=== PATIENT | male | born 1990 | race Caucasian/White ===

== ENCOUNTER 2018-11-12 16:46 | Emergency (ER) | payer MEDICAID ==
[2018-11-12] MEDS ORDERED: cefTRIAXone 1 GM in Sodium Chloride 0.9% 50 ML IV ONE (17:25)
--- NOTE | 2018-11-12 18:12 | ED Physician Chart ---
ED Chief Complaint/HPI - Patient Information Date Seen:: 11/12/18 Time Seen:: 17:00 Chief Complaint:: Fever History of Present Illness:: onset x 2 days of fever, H/As, S/T, neck pain, and myalgias; pt denies LOC, ALOC , AMS, trauma, cough, C/P, dyspnea, abd. pain, A/N/V/D/C< chills, or urinary s/s Allergies:: Allergies Allergy/AdvReac Type Severity Reaction Status Date / Time No Known Allergies Allergy Verified 11/12/18 17:21 Vitals:: Vital Signs - 8 hr 11/12/18 17:09 Temp 100.1 F HR 112 RR 18 BP 110/81 O2 Sat % 98 Historian:: Patient, Family Member Review:: Nurse's Note Reviewed, Old Chart Reviewed <Azar Moscoso - Last Filed: 11/12/18 18:07> - Patient Information Allergies:: Allergies Allergy/AdvReac Type Severity Reaction Status Date / Time No Known Allergies Allergy Verified 11/12/18 17:21 <Mayte Cheng - Last Filed: 11/13/18 08:47> ED Review of Systems - Review of Systems General/Constitutional: Fever, No chills, No weight loss, No weakness, No diaphoresis, No edema, No loss of appetite Skin: No skin lesions, No rash, No bruising Head: Headache, No light-headedness Eyes: No loss of vision, No pain, No diplopia ENT: No earache, No nasal drainage, Sore throat, No tinnitus Neck: Neck pain, No swelling, No thyromegaly, No stiffness, No mass noted Cardio Vascular: No chest pain, No palpitations, No PND, No orthopnea, No edema Pulmonary: No SOB, No cough, No sputum, No wheezing GI: No nausea, No vomiting, No diarrhea, No pain, No melena, No hematochezia, No constipation, No hematemesis G/U: No dysuria, No frequency, No hematuria, No nacturia Musculoskeletal: No bone or joint pain, No back pain, No muscle pain Endocrine: No polyuria, No polydipsia Psychiatric: No prior psych history, No depression, No anxiety, No suicidal ideation, No homicidal ideation, No auditory hallucination, No visual hallucination Hematopoietic: No bruising, No lymphadenopathy Allergic/Immuno: No urticaria, No angioedema Neurological: No syncope, No focal symptoms, No weakness, No paresthesia, No headache, No seizure, No dizziness, No confusion, No vertigo <Azar Moscoso - Last Filed: 11/12/18 18:07> ED Past Medical History - Past Medical History Obtainable: Yes Past Medical History: Other (Smiley's Disease) Family History: HTN Social History: Non Smoker, No Alcohol, No Drug Use, Single, Lives With Parents Surgical History: None Psychiatricy History: None Medication: Reviewed <Azar Moscoso - Last Filed: 11/12/18 18:07> Family Medical History - Family Member Mother History Unknown: Yes <SkylarMayte - Last Filed: 11/13/18 08:47> ED Physical Exam - Physical Examination General/Constitutional: Awake, Well-developed, well-nourished, Alert, No distress, GCS 15, Non-toxic appearing, Ambulatory Head: Atraumatic Eyes: Lids, conjuctiva normal, PERRL, EOMI Skin: Nl inspection, No rash, No skin lesions, No ecchymosis, Well hydrated, No lymphadenopathy ENMT: External ears, nose nl, TM canals nl, Nasal exam nl, Lips, teeth, gums nl , Tonsils nl Other ENMT comments:: Pharynx: Injected Neck: Nontender, Full ROM w/o pain, No JVD, No nuchal rigidity, No bruit, No mass, No stridor Other Neck comments:: supple; no meningeal signs; no cervical tenderness Respiratory: Nl effort/Exclusion, Clear to Auscultation, No Wheeze/Rhonchi/Rales Cardio Vascular: RRR, No murmur, gallop, rubs, NL S1 S2, Carotid/Femoral/Distal pulses equal bilaterally GI: No tenderness/rebounding/guarding, No organomegaly, No hernia, Normal BS's, Nondistended, No mass/bruits, No McBurney tenderness : No CVA tenderness Extremities: No tenderness or effusion, Full ROM, normal strength in all extremities, No edema, Normal digits & nails Neuro/Psych: Alert/oriented, DTR's symmetric, Normal sensory exam, Normal motor strength, Judgement/insight normal, Mood normal, Normal gait, No focal deficits Misc: Normal back, No paraspinal tenderness <Azar Moscoso - Last Filed: 11/12/18 18:07> ED Labs/Radiology/EKG Results - Lab Results Results: Laboratory Tests 11/12/18 11/12/18 11/12/18 19:45 20:00 20:00 WBC 8.4 RBC 5.54 Hgb 16.7 Hct 49.5 MCV 89.3 MCH 30.2 H MCHC Differential 33.8 RDW 11.5 Plt Count 186 MPV 10.0 Add Manual Diff YES Band Neutrophils % 0 Neutrophils (Manual) 70 Lymphocytes 11 L Monocytes 18 H Eosinophils 1 Basophils 0 PT 10.4 INR 1.00 PTT (Actin FS) 28.9 Sodium Potassium Chloride Carbon Dioxide Anion Gap BUN Creatinine Est GFR ( Amer) Est GFR (Non-Af Amer) BUN/Creatinine Ratio Glucose Whole Bld Lactic Acid Calcium Total Bilirubin AST ALT Alkaline Phosphatase Creatine Kinase Troponin I Total Protein Albumin Globulin Albumin/Globulin Ratio Urine Source [place] Urine Color YELLOW Urine Clarity CLEAR Urine pH 8.0 Ur Specific [place] 1.010 Urine Protein NEGATIVE Urine Glucose (UA) NEGATIVE Urine Ketones 40 H Urine Blood NEGATIVE Urine Nitrate NEGATIVE Urine Bilirubin NEGATIVE Urine Urobilinogen 0.2 Ur Leukocyte Esterase NEGATIVE Urine RBC NONE SEEN Urine WBC 0-2 Ur Epithelial Cells NONE SEEN Urine Bacteria OCCASIONAL Influenza A (Rapid) Influenza B (Rapid) 11/12/18 11/12/18 11/12/18 20:00 20:00 20:00 WBC RBC Hgb Hct MCV MCH MCHC Differential RDW Plt Count MPV Add Manual Diff Band Neutrophils % Neutrophils (Manual) Lymphocytes Monocytes Eosinophils Basophils PT INR PTT (Actin FS) Sodium 138 Potassium 3.3 L Chloride 105 Carbon Dioxide 18.5 L Anion Gap 17.8 H BUN 14 Creatinine 1.0 Est GFR ( Amer) > 60.0 Est GFR (Non-Af Amer) > 60.0 BUN/Creatinine Ratio 14.0 Glucose 82 Whole Bld Lactic Acid 1.85 Calcium 10.0 Total Bilirubin 0.8 AST 18 ALT 21 Alkaline Phosphatase 40 Creatine Kinase 155 Troponin I < 0.01 L Total Protein 7.4 Albumin 4.8 Globulin 2.6 Albumin/Globulin Ratio 1.9 H Urine Source Urine Color Urine Clarity Urine pH Ur Specific [place] Urine Protein Urine Glucose (UA) Urine Ketones Urine Blood Urine Nitrate Urine Bilirubin Urine Urobilinogen Ur Leukocyte Esterase Urine RBC Urine WBC Ur Epithelial Cells Urine Bacteria Influenza A (Rapid) Influenza B (Rapid) 11/12/18 21:10 WBC RBC Hgb Hct MCV MCH MCHC Differential RDW Plt Count MPV Add Manual Diff Band Neutrophils % Neutrophils (Manual) Lymphocytes Monocytes Eosinophils Basophils PT INR PTT (Actin FS) Sodium Potassium Chloride Carbon Dioxide Anion Gap BUN Creatinine Est GFR ( Amer) Est GFR (Non-Af Amer) BUN/Creatinine Ratio Glucose Whole Bld Lactic Acid Calcium Total Bilirubin AST ALT Alkaline Phosphatase Creatine Kinase Troponin I Total Protein Albumin Globulin Albumin/Globulin Ratio Urine Source Urine Color Urine Clarity Urine pH Ur Specific [place] Urine Protein Urine Glucose (UA) Urine Ketones Urine Blood Urine Nitrate Urine Bilirubin Urine Urobilinogen Ur Leukocyte Esterase Urine RBC Urine WBC Ur Epithelial Cells Urine Bacteria Influenza A (Rapid) NEG FOR INF A Influenza B (Rapid) NEG FOR INF B <Mayte Cheng - Last Filed: 11/13/18 08:47> ED Septic Shock - . Is Septic Shock (SBP<90, OR Lactate>4 mmol\L) present?: No - <6hrs of presentation: Vital Signs: Vital Signs - 8 hr 11/12/18 17:09 Temp 100.1 F HR 112 RR 18 BP 110/81 O2 Sat % 98 <Azar Moscoso - Last Filed: 11/12/18 18:07> - . Is Septic Shock (SBP<90, OR Lactate>4 mmol\L) present?: No <Mayte Cheng - Last Filed: 11/13/18 08:47> ED Reassessment (Disposition) - Reassessment Reassessment Condition:: Improved - Diagnosis Diagnosis:: Fever; Sore Throat; Pharyngitis; URI; Sepsis; Sinusitis; Headaches; Neck Pain; Tachycardia <Azar Moscoso - Last Filed: 11/12/18 18:07> - Reassessment Reassessment:: Pt refused Rocephin IV. I ordered Rocephin IM and pt accepted it. About 40 minutes later, pt stated that he felt better and wanted to go home. Due to low K 3.3, I ordered KCL 20mEq po but pt refused. Reassessment Condition:: Improved - Diagnosis Diagnosis:: Hypokalemia - Aftercare/Follow up Instructions Notes:: D/c home F/u PCP or return to ER if symptoms worsen - Patient Disposition Discharge/Transfer:: Home <Mayte Cheng - Last Filed: 11/13/18 08:47>
[2018-11-12 20:09] LABS: EOSINOPHILE ABSOLUTE 0.1 Th/cmm (0.1-0.4); HEMATOCRIT 49.5 % (41.0-60); HEMOGLOBIN 16.7 gm/dL (12-16); LYMPHOCYTE ABSOLUTE 0.9 Th/cmm (1.5-3.0); MEAN CELL VOLUME 89.3 fl (80-99); MEAN CORPUSCULAR HEMOGLOBIN 30.2 pg (26.0-30.0); MEAN CORPUSCULAR HGB CONC 33.8 pg (28.0-36.0); MONOCYTE ABSOLUTE 1.5 Th/cmm (0.3-1.0); NEUTROPHILE ABSOLUTE 5.9 Th/cmm (1.8-8.0); PLATELET COUNT 186 Th/cmm (150-400); RED BLOOD COUNT 5.54 Mil/cmm (4.30-5.70); RED CELL DISTRIBUTION WIDTH 11.5 % (11.5-20.0); WHITE BLOOD COUNT 8.4 Th/cmm (4.8-10.8)
[2018-11-12 20:21] LABS: URINE SOURCE MIDSTREAM
[2018-11-12 20:21] LABS: PROTHROMBIN TIME (TEST) 10.4 SECONDS (9.5-11.5)
[2018-11-12 20:24] LABS: ALB/GLOB RATIO 1.9 (1.0-1.8); ALBUMIN 4.8 gm/dL (4.2-5.5); ALKALINE PHOSPHATASE 40 U/L (34-104); ANION GAP 17.8 (7.0-16.0); BILIRUBIN,TOTAL 0.8 mg/dL (0.3-1.0); BUN - UREA NITROGEN 14 mg/dL (7-25); CARBON DIOXIDE 18.5 mEq/L (21.0-31.0); CHLORIDE 105 mEq/L (98-107); CREATININE KINASE 155 U/L (30-223); GFR AFRICAN-AMERICAN > 60.0 ml/min (>90); GFR NON AFRICAN-AMERICAN > 60.0 ml/min; GLUCOSE 82 mg/dL (70-105); POTASSIUM SERUM 3.3 mEq/L (3.5-5.1); SGOT 18 U/L (13-39); SGPT/ALT 21 U/L (7-52); SODIUM SERUM 138 mEq/L (136-145); TOTAL PROTEIN,SERUM 7.4 gm/dL (6.0-8.3)
[2018-11-12 20:24] LABS: URINE BILIRUBIN NEGATIVE (NEGATIVE); URINE BLOOD NEGATIVE (NEGATIVE); URINE GLUCOSE (UA) NEGATIVE (NEGATIVE); URINE KETONE 40 mg/dL (NEGATIVE); URINE LEUKOCYTE ESTERASE NEGATIVE (NEGATIVE); URINE NITRATE NEGATIVE (NEGATIVE); URINE PROTEIN NEGATIVE (NEGATIVE); URINE UROBILINOGEN 0.2 E.U./dL (0.2 - 1.0)
[2018-11-12] MEDS ORDERED: Potassium Chloride 20 mEq ER Tab PO ONE (20:54)
[2018-11-12 21:52] LABS: URINE CLARITY CLEAR (CLEAR); URINE COLOR YELLOW
[2018-11-12 21:53] LABS: URINE MICROSCOPIC INDICATED? YES; URINE RBC NONE SEEN /hpf (0-5); URINE WBC 0-2 /hpf (0-5)
[2018-11-12 21:54] LABS: URINE BACTERIA OCCASIONAL /hpf (NONE SEEN); URINE EPITHELIAL CELLS NONE SEEN /lpf (FEW)
[2018-11-12 22:25] LABS: BAND NEUTROPHILE 0 % (0-10); BASOPHIL 0 % (0-3); EOSINOPHIL 1 % (0-5); LYMPHOCYTE 11 % (20-50); MONOCYTE 18 % (2-10); NEUTROPHILS 70 % (40-80)
[2018-11-12 22:45] LABS: INF A SCREEN NEG FOR INF A; INF B SCREEN NEG FOR INF B
== END 2018-11-12 21:06 | disposition home or self-care (01) ==
LOC: ER 16:46
DX: A41.9 Sepsis, unspecified organism (principal); J02.9 Acute pharyngitis, unspecified; J06.9 Acute upper respiratory infection, unspecified; M54.2 Cervicalgia; J32.9 Chronic sinusitis, unspecified; R00.0 Tachycardia, unspecified; R51 Headache
CPT/HCPCS: 99284; 96372 ×2; 93005; 84484; 36415; 83605; 87804 ×2; 85025; 85610; 85730; 81001; 82550; 80053; 87040 ×2; 85007; J2060; J0696; J2001; Z7502

== ENCOUNTER 2019-01-06 19:39 | Emergency (ER) | payer MEDICAID ==
--- NOTE | 2019-01-06 20:30 | ED Physician Chart ---
ED Chief Complaint/HPI - Patient Information Date Seen:: 01/06/19 (t) Time Seen:: 20:24 Chief Complaint:: chronic pain History of Present Illness:: 28 yr old with chronic pain lt arm etc has been dealing with it for a long time states he would benefit from potassium magnesium pills no nv no cp or abd pain some diarhea and headache Allergies:: Allergies Allergy/AdvReac Type Severity Reaction Status Date / Time No Known Allergies Allergy Verified 01/06/19 20:05 Vitals:: Vital Signs - 8 hr 01/06/19 19:45 Temp 98.7 F HR 73 RR 18 BP 147/93 O2 Sat % 97 ED Review of Systems - Review of Systems General/Constitutional: No fever Skin: No skin lesions Head: Headache Eyes: No loss of vision ENT: No earache Cardio Vascular: No chest pain, No palpitations Pulmonary: No SOB GI: No vomiting G/U: No dysuria Musculoskeletal: Bone or joint pain Endocrine: No polyuria Hematopoietic: No bruising Allergic/Immuno: No urticaria Neurological: No syncope ED Past Medical History - Past Medical History Past Medical History: Other (fibromyalgia osteoporosis mold problem) Family Medical History - Family Member Mother History Unknown: Yes ED Physical Exam - Physical Examination General/Constitutional: Well-developed, well-nourished Head: Atraumatic Eyes: Lids, conjuctiva normal Skin: Nl inspection ENMT: External ears, nose nl Neck: Nontender Respiratory: Nl effort/Exclusion Other Extremities comments:: arm pain lt Neuro/Psych: Alert/oriented ED Assessment - Assessment General Assessment: aarm pain ED Septic Shock - . Is Septic Shock (SBP<90, OR Lactate>4 mmol\L) present?: No - <6hrs of presentation: Vital Signs: Vital Signs - 8 hr 01/06/19 19:45 Temp 98.7 F HR 73 RR 18 BP 147/93 O2 Sat % 97 ED Reassessment (Disposition) - Reassessment Reassessment:: lt arm pain - Diagnosis Diagnosis:: lt arm pain - Aftercare/Follow up Instructions Aftercare/Follow-Up Instructions:: Counseled pt regarding lab results/diagnosis & need follow up - Patient Disposition Discharge/Transfer:: Home Condition at Disposition:: Stable
[2019-01-06] MEDS ORDERED: Magnesium Citrate 1.75 GM/300 mL Bottle PO ONE (20:35)
[2019-01-06] MEDS ORDERED: Potassium Chloride 20 mEq ER Tab PO ONE ×2 (20:35→20:38)
[2019-01-06] MEDS ORDERED: Magnesium Citrate 1.75 GM/300 mL Bottle ONE (20:41)
== END 2019-01-06 21:03 | disposition home or self-care (01) ==
LOC: ER 19:39
DX: M79.602 Pain in left arm (principal); G89.29 Other chronic pain
CPT/HCPCS: 99283; 96372; J1885; Z7502